=== PATIENT | female | born 1995 | race Caucasian/White ===

== ENCOUNTER 2023-11-11 11:43 | Emergency (ER) | payer MEDICAID ==
[~2023-11-11] VITALS: Ht 165.1 cm; Wt 118.2 kg
[2023-11-11 13:06] VITALS: BP 115/68; PULSE 74; RESP 16; TEMP 98; O2SAT 98
== END 2023-11-11 13:08 | disposition home or self-care (01) ==
LOC: ER 11:44
DX: S86.912A Strain of unspecified muscle(s) and tendon(s) at lower leg level, left leg, initial encounter (principal); Z88.5 Allergy status to narcotic agent; X58.XXXA Exposure to other specified factors, initial encounter; Y93.89 Activity, other specified; Y92.89 Other specified places as the place of occurrence of the external cause; Y99.8 Other external cause status
CPT/HCPCS: 93971; 99284

== ENCOUNTER 2023-12-29 15:19 | Emergency (ER) | payer MEDICAID ==
[~2023-12-29] VITALS: Ht 165.1 cm; Wt 94.8 kg
[2023-12-29] MEDS ORDERED: ibuprofen tablet 400 MG TABLET PO ONE (16:15)
[2023-12-29] MEDS: ibuprofen 200mg tablet PO ONE (16:29)
[2023-12-29 16:54] LABS: BASOPHILS % (AUTO) 0.3 % (0-1); EOSINOPHILS # (AUTO) 0.1 X10'3 (0-0.9); EOSINOPHILS % (AUTO) 0.9 % (0-6); HEMATOCRIT 41.7 % (35.0-45.0); LYMPHOCYTES # (AUTO) 0.7 X10'3 (1.1-4.8); LYMPHOCYTES % (AUTO) 8.7 % (21-51); MEAN CORPUSCULAR HEMOGLOBIN 31.5 PG (27.0-31.0); MEAN CORPUSCULAR HGB CONC 33.6 g/dL (33.0-36.5); MEAN CORPUSCULAR VOLUME 93.9 FL (78-98); MEAN PLATELET VOLUME 8.5 FL (7.4-10.4); MONOCYTES # (AUTO) 0.3 X10'3 (0-0.9); MONOCYTES % (AUTO) 3.3 % (2-12); NEUTROPHILS % (AUTO) 86.8 % (42-75); PLATELET COUNT 289 X10'3 (140-440); RED BLOOD COUNT 4.44 X10'6 (4.20-5.60); RED CELL DISTRIBUTION WIDTH 13.5 % (11.5-14.5)
[2023-12-29 16:57] LABS: BILIRUBIN,URINE NEGATIVE (Neg); CLARITY,URINE SLIGHTLY CLOUDY (Clear); GLUCOSE, URINE NEGATIVE (Neg); KETONES,URINE NEGATIVE (Neg); LEUKOCYTE ESTERASE ,URINE NEGATIVE (Neg); NITRITES, URINE NEGATIVE (Neg); OCCULT BLOOD,URINE NEGATIVE (Neg); PH,URINE 5.5 (4.8-8.0); PROTEIN,URINE NEGATIVE (Neg); UROBILINOGEN,URINE 0.2 E.U/dL (0.2-1.0)
[2023-12-29 17:06] LABS: COLOR,URINE DARK YELLOW (Yellow); UA COLLECTION TYPE CLN CATCH MIDSTREAM
[2023-12-29 17:07] LABS: BACTERIA,URINE FEW /HPF (Neg); CAL OXALATE CRYSTALS FEW /HPF (NEGATIVE); MUCUS STRANDS FEW /LPF (Neg); RBC,URINE 0-2 /HPF (0-2); RENAL CELLS, URINE FEW /HPF; SQUAMOUS EPITHELIAL CELL,UR MODERATE /LPF (FEW); TRANSITIONAL EPI CELLS,URINE FEW /HPF; WBC,URINE 0-4 /HPF (0-4)
[2023-12-29 17:08] LABS: ALANINE AMINOTRANSFERASE 18 U/L (12-78); ALBUMIN 3.6 G/DL (3.4-5.0); ALBUMIN/GLOBULIN RATIO 0.9 (1.1-1.5); ALKALINE PHOSPHATASE 74 IU/L (46-116); ANION GAP 9 (8-16); ASPARTATE AMINO TRANSFERASE 17 U/L (10-37); BILIRUBIN,TOTAL 0.5 MG/DL (0.1-1.0); BLOOD UREA NITROGEN 17 MG/DL (7-18); BUN/CREATININE RATIO 31.5 (10.0-20.0); CALCIUM 8.6 MG/DL (8.5-10.1); CHLORIDE 104 MMOL/L (99-107); CREATININE 0.54 MG/DL (0.40-0.90); GLUCOSE 78 MG/DL (70-104); POTASSIUM 4.1 MMOL/L (3.5-5.1); SODIUM 139 MMOL/L (135-145); TOTAL PROTEIN 7.6 G/DL (6.4-8.2); eCRCL 138 ML/MIN; eGFR > 90 ML/MIN
[2023-12-29 17:35] LABS: BETA HCG,QUANTITATIVE < 1.0 mIU/ml
[2023-12-29] MEDS: acetaminophen 325mg tablet PO ONE (17:48)
[2023-12-29] MEDS ORDERED: ONDA-245 PO (17:49)
[2023-12-29] MEDS: ketorolac trometh 15mg/ml vial 15 MG/ML ML IM ONE (17:52)
[2023-12-29] MEDS: ondansetron 4mg rapidly disintigrating tab PO ONE (17:53)
[2023-12-29 17:59] VITALS: BP 128/84; PULSE 79; RESP 15; TEMP 98.7; O2SAT 98
== END 2023-12-29 17:59 | disposition home or self-care (01) ==
LOC: ER 15:19
DX: B34.9 Viral infection, unspecified (principal); R11.2 Nausea with vomiting, unspecified; R19.7 Diarrhea, unspecified; Z88.8 Allergy status to other drugs, medicaments and biological substances; Z20.822 Contact with and (suspected) exposure to COVID-19; O02.81 Inappropriate change in quantitative human chorionic gonadotropin (hCG) in early pregnancy
CPT/HCPCS: 36415; 71045; 80053; 81001; 84702; 85025; 87811; 96372; 99284; J1885

== ENCOUNTER 2024-01-20 06:35 | Inpatient (IN) | payer MEDICAID ==
[2024-01-20] VITALS (17 sets, daily range): BP systolic 110–143; BP diastolic 58–84; PULSE 56–87; RESP 12–19; TEMP 97.4–98.3; O2SAT 91–100
[~2024-01-20] VITALS: Ht 165.1 cm; Wt 113.6 kg
[~2024-01-20 06:35] MED LIST: ONDA-245 PO
[2024-01-20 07:06] LABS: BASOPHILS % (AUTO) 0.3 % (0-1); EOSINOPHILS # (AUTO) 0.1 X10'3 (0-0.9); HEMATOCRIT 44.2 % (35.0-45.0); HEMOGLOBIN 14.4 g/dl (12.0-16.0); LYMPHOCYTES # (AUTO) 1.8 X10'3 (1.1-4.8); LYMPHOCYTES % (AUTO) 15.4 % (21-51); MEAN CORPUSCULAR HEMOGLOBIN 31.1 PG (27.0-31.0); MEAN CORPUSCULAR HGB CONC 32.6 g/dL (33.0-36.5); MEAN CORPUSCULAR VOLUME 95.4 FL (78-98); MEAN PLATELET VOLUME 9.1 FL (7.4-10.4); MONOCYTES # (AUTO) 0.7 X10'3 (0-0.9); MONOCYTES % (AUTO) 6.3 % (2-12); NEUTROPHILS # (AUTO) 9.1 X10'3 (1.8-7.7); PLATELET COUNT 262 X10'3 (140-440); RED BLOOD COUNT 4.64 X10'6 (4.20-5.60); RED CELL DISTRIBUTION WIDTH 12.9 % (11.5-14.5); WHITE BLOOD COUNT 11.7 X10'3 (4.5-11.0)
[2024-01-20 07:28] LABS: URINE HCG NEGATIVE (NEG)
[2024-01-20 07:33] LABS: BILIRUBIN,URINE NEGATIVE (Neg); CLARITY,URINE CLOUDY (Clear); COLOR,URINE YELLOW (Yellow); GLUCOSE, URINE NEGATIVE (Neg); KETONES,URINE NEGATIVE (Neg); LEUKOCYTE ESTERASE ,URINE NEGATIVE (Neg); NITRITES, URINE NEGATIVE (Neg); OCCULT BLOOD,URINE TRACE-INTACT (Neg); PH,URINE 6.5 (4.8-8.0); PROTEIN,URINE NEGATIVE (Neg); UROBILINOGEN,URINE 0.2 E.U/dL (0.2-1.0)
[2024-01-20] MEDS: ondansetron/PF 4mg/2ml inj IV ONE (07:36)
[2024-01-20] MEDS: morphine 2 MG/ML inj. syringe IV PRN ×2 (07:37→17:09)
[2024-01-20] MEDS: normal saline 1000ML IV soln IVB ONE (07:37)
[2024-01-20 07:46] LABS: UA COLLECTION TYPE CLN CATCH MIDSTREAM
[2024-01-20 07:49] LABS: BACTERIA,URINE 2+ /HPF (Neg); MUCUS STRANDS FEW /LPF (Neg); RBC,URINE 0-2 /HPF (0-2); SQUAMOUS EPITHELIAL CELL,UR MANY /LPF (FEW); WBC,URINE 0-4 /HPF (0-4)
[2024-01-20 09:06] LABS: ALANINE AMINOTRANSFERASE 13 U/L (12-78); ALBUMIN 3.3 G/DL (3.4-5.0); ALBUMIN/GLOBULIN RATIO 0.9 (1.1-1.5); ALKALINE PHOSPHATASE 60 IU/L (46-116); ANION GAP 7 (8-16); ASPARTATE AMINO TRANSFERASE 21 U/L (10-37); BILIRUBIN,TOTAL 0.4 MG/DL (0.1-1.0); BLOOD UREA NITROGEN 14 MG/DL (7-18); BUN/CREATININE RATIO 30.4 (10.0-20.0); CALCIUM 8.7 MG/DL (8.5-10.1); CHLORIDE 106 MMOL/L (99-107); CREATININE 0.46 MG/DL (0.40-0.90); GLUCOSE 81 MG/DL (70-104); LIPASE 44 U/L (16-77); POTASSIUM 3.6 MMOL/L (3.5-5.1); SODIUM 139 MMOL/L (135-145); TOTAL CARBON DIOXIDE 26.5 MMOL/L (24-32); TOTAL PROTEIN 6.8 G/DL (6.4-8.2); eCRCL 162 ML/MIN; eGFR > 90 ML/MIN
[2024-01-20] MEDS ORDERED: iohexol 300mg/ml 100ml inj. ONE (10:04)
[2024-01-20] MEDS ORDERED: magnesium sulf-water 4G/100mL 100 ML IV PRN (12:30)
[2024-01-20] MEDS ORDERED: acetaminophen 325mg tablet PO PRN (12:30)
[2024-01-20] MEDS ORDERED: potassium Cl 40MEQ/1/2NS 520ml 520 ML IV PRN (12:30)
[2024-01-20] MEDS ORDERED: potassium Cl 20 mEq SR tablet PO PRN (12:30)
[2024-01-20] MEDS ORDERED: magnesium Cl slow-release 64mg tablet PO PRN (12:30)
[2024-01-20] MEDS ORDERED: magnesium sulf-water 2g/50mL 50 ML IV PRN (12:30)
[2024-01-20] MEDS ORDERED: magnesium hydroxide 30ml (MOM) UD suspension PO PRN (12:30)
[2024-01-20 13:36] LABS: APTT 27 SECONDS (22-32); PROTHROMBIN TIME 10.9 SECONDS (9.0-12.0)
[2024-01-20] MEDS: BUPIVAcaine 2.5mg/ml inj 50ml vial (contains preservative) ONE (13:36)
[2024-01-20] MEDS ORDERED: meperidine/PF 25mg/ml syringe IV PRN ×2 (13:40)
[2024-01-20] MEDS ORDERED: labetalol 20mg/4ml (5mg/ml) syringe IV PRN (13:40)
[2024-01-20] MEDS ORDERED: morphine 4 MG/ML inj SYRINge IV PRN (13:40)
[2024-01-20] MEDS ORDERED: proCHLORperazine 10 MG/2 ml inj IV PRN (13:40)
[2024-01-20] MEDS ORDERED: hydrALAZINE 20mg/ml inj. IV PRN (13:40)
[2024-01-20] MEDS ORDERED: morphine 2 MG/ML inj. syringe IV PRN (13:40)
[2024-01-20] MEDS: ringers solution, lacted 1,000 ML IV SCH (13:40)
[2024-01-20] MEDS: famotidine 20mg tablet PO STA (13:52)
[2024-01-20] MEDS ORDERED: sevoflurane 250ml liquid IH ONE (13:56)
[2024-01-20] MEDS ORDERED: midazolam 1 mg/ML 2ml injection ONE (14:08)
[2024-01-20] MEDS ORDERED: fentaNYL /PF 50mcg/ml 5ml ampule ONE (14:18)
[2024-01-20] MEDS: BUPIVAcaine/PF 2.5 mg/ml (0.25%) 30ml vial SQ ONE (14:29)
[2024-01-20] MEDS ORDERED: ceFOXitin 1000 MG inj ONE ×2 (14:34→14:35)
[2024-01-20] MEDS ORDERED: LIDOcaine 2% (20mg/ml) 5ml vial ONE (14:34)
[2024-01-20] MEDS ORDERED: rocuronium 10mg/ml inj IV ONE (14:34)
[2024-01-20] MEDS ORDERED: propofol inj 20 ML IV ONE (14:35)
[2024-01-20] MEDS ORDERED: ondansetron/PF 4mg/2ml inj ONE (14:35)
[2024-01-20] MEDS ORDERED: dexamethasone sod phosphate 4mg/ml inj. ONE (14:35)
[2024-01-20] MEDS ORDERED: neostigmine methylsulfate 1 MG/ML 10ml vial ONE (15:08)
[2024-01-20] MEDS ORDERED: glycopyrrolate 0.2mg/ml inj ONE (15:08)
[2024-01-20] MEDS ORDERED: morphine 10mg/ml inj. ONE (15:18)
[2024-01-20] MEDS: ondansetron/PF 4mg/2ml inj IV PRN (15:50)
[2024-01-20] MEDS: acetaminophen 1,000mg/100ml IV 100 ML IV ONE (15:51)
[2024-01-20] MEDS: meperidine/PF 25mg/ml syringe IV PRN (15:51)
[2024-01-20] MEDS: normal saline 1000ml 1,000 ML IV SCH (16:33)
[2024-01-20] MEDS: docusate sod 100mg capsule PO SCH (19:40)
[2024-01-20] MEDS: mag hydrox/Alum hydrox/simeth 30ml oral suspension PO PRN (19:48)
[2024-01-20] MEDS: K and/or MAG REPLACEMENT MC SCH (20:00)
[2024-01-20] MEDS: HYDROmorphone inj. 0.5 MG/0.5 ML DISP.SYRIN IV PRN (22:19)
[2024-01-21] MEDS: ondansetron/PF 4mg/2ml inj IV PRN (00:59)
[2024-01-21 05:17] LABS: BASOPHILS % (AUTO) 0.2 % (0-1); EOSINOPHILS % (AUTO) 0.1 % (0-6); HEMATOCRIT 35.7 % (35.0-45.0); HEMOGLOBIN 11.9 g/dl (12.0-16.0); LYMPHOCYTES % (AUTO) 10.1 % (21-51); MEAN CORPUSCULAR HEMOGLOBIN 31.6 PG (27.0-31.0); MEAN CORPUSCULAR HGB CONC 33.3 g/dL (33.0-36.5); MEAN CORPUSCULAR VOLUME 94.8 FL (78-98); MEAN PLATELET VOLUME 9.7 FL (7.4-10.4); MONOCYTES # (AUTO) 0.6 X10'3 (0-0.9); MONOCYTES % (AUTO) 6.1 % (2-12); NEUTROPHILS # (AUTO) 8.3 X10'3 (1.8-7.7); NEUTROPHILS % (AUTO) 83.5 % (42-75); PLATELET COUNT 248 X10'3 (140-440); RED BLOOD COUNT 3.76 X10'6 (4.20-5.60)
[2024-01-21 05:28] LABS: ALANINE AMINOTRANSFERASE 17 U/L (12-78); ALBUMIN 3.2 G/DL (3.4-5.0); ALBUMIN/GLOBULIN RATIO 0.9 (1.1-1.5); ALKALINE PHOSPHATASE 60 IU/L (46-116); ANION GAP 8 (8-16); ASPARTATE AMINO TRANSFERASE 18 U/L (10-37); BILIRUBIN,TOTAL 0.6 MG/DL (0.1-1.0); BLOOD UREA NITROGEN 9 MG/DL (7-18); BUN/CREATININE RATIO 23.7 (10.0-20.0); CALCIUM 8.4 MG/DL (8.5-10.1); CHLORIDE 102 MMOL/L (99-107); CHOL/HDL RATIO 1.8 (0.00-4.99); CHOLESTEROL 136 MG/DL (0-200); CREATININE 0.38 MG/DL (0.40-0.90); GLUCOSE 89 MG/DL (70-104); HDL CHOLESTEROL 75 MG/DL (35-60); LDL CHOLESTEROL 52 MG/DL (50-100); MAGNESIUM 1.6 MG/DL (1.5-2.4); PHOSPHORUS 4.2 MG/DL (2.3-4.5); POTASSIUM 3.5 MMOL/L (3.5-5.1); SODIUM 137 MMOL/L (135-145); TOTAL CARBON DIOXIDE 26.8 MMOL/L (24-32); TOTAL PROTEIN 6.9 G/DL (6.4-8.2); TRIGLYCERIDES 88 MG/DL (20-135); eCRCL 197 ML/MIN; eGFR > 90 ML/MIN
[2024-01-21 06:00] VITALS: BP 103/60; PULSE 54; RESP 14; TEMP 98.6; O2SAT 95
[2024-01-21 08:30] VITALS: RESP 18; O2SAT 97
[2024-01-21 10:00] VITALS: BP 105/59; PULSE 61; RESP 14; TEMP 97.7; O2SAT 95
[2024-01-21] MEDS: piperacillin/tazo 3.375gm/50ml 50 ML IV SCH ×2 (10:50→19:14)
[2024-01-21] MEDS ORDERED: ondansetron/PF 4mg/2ml inj IV PRN (11:10)
[2024-01-21] MEDS: acetaminophen 325mg tablet PO PRN (14:37)
[2024-01-21 18:00] VITALS: BP 110/72; PULSE 72; RESP 16; TEMP 97.5; O2SAT 99
[2024-01-21] MEDS: HYDROcodone/acetaminophen 5mg/325mg tablet PO PRN (19:20)
[2024-01-21 20:00] VITALS: RESP 16; O2SAT 98
[2024-01-21 22:00] VITALS: BP 119/66; PULSE 74; RESP 16; TEMP 97.7; O2SAT 98
[2024-01-22 06:00] VITALS: BP 112/64; PULSE 68; RESP 16; TEMP 97.1; O2SAT 95
[2024-01-22 06:45] LABS: BASOPHILS % (AUTO) 0.6 % (0-1); EOSINOPHILS # (AUTO) 0.1 X10'3 (0-0.9); EOSINOPHILS % (AUTO) 0.9 % (0-6); HEMOGLOBIN 10.8 g/dl (12.0-16.0); LYMPHOCYTES # (AUTO) 1.5 X10'3 (1.1-4.8); LYMPHOCYTES % (AUTO) 23.1 % (21-51); MEAN CORPUSCULAR HEMOGLOBIN 31.1 PG (27.0-31.0); MEAN CORPUSCULAR HGB CONC 32.6 g/dL (33.0-36.5); MEAN CORPUSCULAR VOLUME 95.4 FL (78-98); MEAN PLATELET VOLUME 9.5 FL (7.4-10.4); MONOCYTES # (AUTO) 0.5 X10'3 (0-0.9); NEUTROPHILS # (AUTO) 4.4 X10'3 (1.8-7.7); NEUTROPHILS % (AUTO) 67.4 % (42-75); PLATELET COUNT 222 X10'3 (140-440); RED BLOOD COUNT 3.46 X10'6 (4.20-5.60); RED CELL DISTRIBUTION WIDTH 12.8 % (11.5-14.5); WHITE BLOOD COUNT 6.5 X10'3 (4.5-11.0)
[2024-01-22 07:06] LABS: ALANINE AMINOTRANSFERASE 14 U/L (12-78); ALBUMIN 2.8 G/DL (3.4-5.0); ALBUMIN/GLOBULIN RATIO 0.8 (1.1-1.5); ALKALINE PHOSPHATASE 56 IU/L (46-116); ANION GAP 4 (8-16); ASPARTATE AMINO TRANSFERASE 16 U/L (10-37); BILIRUBIN,TOTAL 0.6 MG/DL (0.1-1.0); BLOOD UREA NITROGEN 6 MG/DL (7-18); CALCIUM 8.1 MG/DL (8.5-10.1); CHLORIDE 104 MMOL/L (99-107); CREATININE 0.46 MG/DL (0.40-0.90); GLUCOSE 80 MG/DL (70-104); MAGNESIUM 1.9 MG/DL (1.5-2.4); PHOSPHORUS 2.6 MG/DL (2.3-4.5); POTASSIUM 3.4 MMOL/L (3.5-5.1); SODIUM 136 MMOL/L (135-145); TOTAL CARBON DIOXIDE 28.2 MMOL/L (24-32); TOTAL PROTEIN 6.4 G/DL (6.4-8.2); eCRCL 162 ML/MIN; eGFR > 90 ML/MIN
[2024-01-22 08:00] VITALS: RESP 16; O2SAT 95
[2024-01-22] MEDS: potassium Cl 20 mEq SR tablet PO PRN (09:24)
[2024-01-22] MEDS ORDERED: ACET-1008 PO (11:41)
[2024-01-22] MEDS ORDERED: ACET-3209 PO (11:43)
[2024-01-22 11:57] VITALS: RESP 18
== END 2024-01-22 13:11 | disposition home or self-care (01) | DRG 234 ==
LOC: ER 06:36 → ED HOLD 12:35 → ORTHO 4S 16:15 → SUR 3N 21:00
PROVIDERS: ADMIT Family Medicine; ATTEND Family Medicine
PROC: BW211ZZ Computerized Tomography (CT Scan) of Abdomen and Pelvis using Low Osmolar Contrast (ICD-10-PCS; 2024-01-20)
PROC: 0DTJ4ZZ Resection of Appendix, Percutaneous Endoscopic Approach (ICD-10-PCS; principal; 2024-01-20 13:56)
DX: K35.30 Acute appendicitis with localized peritonitis, without perforation or gangrene (principal); K76.0 Fatty (change of) liver, not elsewhere classified; E88.09 Other disorders of plasma-protein metabolism, not elsewhere classified; E66.01 Morbid (severe) obesity due to excess calories; J45.909 Unspecified asthma, uncomplicated; F17.210 Nicotine dependence, cigarettes, uncomplicated; I10 Essential (primary) hypertension; Z68.41 Body mass index [BMI] 40.0-44.9, adult; Z88.8 Allergy status to other drugs, medicaments and biological substances; Z98.51 Tubal ligation status
CPT/HCPCS: 36415; 74177; 80053; 80061; 81001; 81025; 83036; 83690; 83735; 84100; 84132; 85025; 85610; 85730; 87081; 96361; 96374; 99285; A4215; A4618; A7000; G0378; J0131; J0694; J1100; J1171; J2175; J2250; J2270; J2274; J2405; J2543; J2704; J2710; J3010; J3490; J7030; J7070; Q9967

== ENCOUNTER 2024-01-24 23:07 | Emergency (ER) | payer MEDICAID ==
[~2024-01-24] VITALS: Ht 165.1 cm; Wt 120.2 kg
[~2024-01-24 23:07] MED LIST changes: +ACET-3209 PO
[2024-01-24 23:42] LABS: BILIRUBIN,URINE NEGATIVE (Neg); CLARITY,URINE CLEAR (Clear); COLOR,URINE YELLOW (Yellow); GLUCOSE, URINE NEGATIVE (Neg); KETONES,URINE NEGATIVE (Neg); LEUKOCYTE ESTERASE ,URINE NEGATIVE (Neg); NITRITES, URINE NEGATIVE (Neg); OCCULT BLOOD,URINE NEGATIVE (Neg); PH,URINE 8.5 (4.8-8.0); PROTEIN,URINE NEGATIVE (Neg)
[2024-01-24 23:43] LABS: UA COLLECTION TYPE CLN CATCH MIDSTREAM
[2024-01-24 23:47] LABS: URINE HCG NEGATIVE (NEG)
[2024-01-25 00:15] LABS: BASOPHILS % (AUTO) 0.5 % (0-1); EOSINOPHILS # (AUTO) 0.1 X10'3 (0-0.9); HEMATOCRIT 34.9 % (35.0-45.0); HEMOGLOBIN 11.6 g/dl (12.0-16.0); LYMPHOCYTES # (AUTO) 1.7 X10'3 (1.1-4.8); LYMPHOCYTES % (AUTO) 17.6 % (21-51); MEAN CORPUSCULAR HEMOGLOBIN 31.4 PG (27.0-31.0); MEAN CORPUSCULAR HGB CONC 33.3 g/dL (33.0-36.5); MEAN CORPUSCULAR VOLUME 94.4 FL (78-98); MEAN PLATELET VOLUME 9.1 FL (7.4-10.4); MONOCYTES # (AUTO) 0.7 X10'3 (0-0.9); MONOCYTES % (AUTO) 7.5 % (2-12); NEUTROPHILS # (AUTO) 7.1 X10'3 (1.8-7.7); NEUTROPHILS % (AUTO) 73.4 % (42-75); PLATELET COUNT 292 X10'3 (140-440); RED CELL DISTRIBUTION WIDTH 13.1 % (11.5-14.5); WHITE BLOOD COUNT 9.7 X10'3 (4.5-11.0)
[2024-01-25 00:15] LABS: ALANINE AMINOTRANSFERASE 16 U/L (12-78); ALBUMIN 3.2 G/DL (3.4-5.0); ALBUMIN/GLOBULIN RATIO 0.8 (1.1-1.5); ALKALINE PHOSPHATASE 72 IU/L (46-116); ANION GAP 8 (8-16); ASPARTATE AMINO TRANSFERASE 15 U/L (10-37); BILIRUBIN,TOTAL 0.2 MG/DL (0.1-1.0); BLOOD UREA NITROGEN 13 MG/DL (7-18); BUN/CREATININE RATIO 21.7 (10.0-20.0); CALCIUM 9.1 MG/DL (8.5-10.1); CHLORIDE 102 MMOL/L (99-107); GLUCOSE 74 MG/DL (70-104); LIPASE 55 U/L (16-77); POTASSIUM 3.8 MMOL/L (3.5-5.1); SODIUM 139 MMOL/L (135-145); TOTAL PROTEIN 7.3 G/DL (6.4-8.2); eCRCL 124 ML/MIN; eGFR > 90 ML/MIN
[2024-01-25] MEDS ORDERED: iohexol 300mg/ml 100ml inj. ONE (00:25)
[2024-01-25] MEDS: normal saline 1000ml 1,000 ML IV ONE (00:26)
[2024-01-25] MEDS: morphine 4 MG/ML inj SYRINge IV ONE (00:46)
[2024-01-25] MEDS: ondansetron/PF 4mg/2ml inj IV ONE (00:46)
[2024-01-25 02:06] VITALS: BP 105/69; PULSE 77; RESP 14; TEMP 99; O2SAT 96
== END 2024-01-25 02:09 | disposition home or self-care (01) ==
LOC: ER 23:08
DX: R50.9 Fever, unspecified (principal); R10.84 Generalized abdominal pain; I10 Essential (primary) hypertension; J45.909 Unspecified asthma, uncomplicated; Z90.49 Acquired absence of other specified parts of digestive tract; Z98.51 Tubal ligation status; Z88.8 Allergy status to other drugs, medicaments and biological substances; Z79.1 Long term (current) use of non-steroidal anti-inflammatories (NSAID); Z79.899 Other long term (current) drug therapy; Z72.89 Other problems related to lifestyle; Z20.822 Contact with and (suspected) exposure to COVID-19
CPT/HCPCS: 36415; 74177; 80053; 81003; 81025; 83690; 84145; 85025; 87811; 96361; 96374; 96375; 99285; J2270; J2405; J7030; Q9967

== ENCOUNTER 2024-04-26 15:28 | Emergency (ER) | payer MEDICAID ==
[~2024-04-26] VITALS: Ht 165.1 cm; Wt 96.2 kg
[~2024-04-26 15:28] MED LIST changes: -ACET-3209 PO; +HYDR-3973 PO
[2024-04-26 15:52] VITALS: BP 137/96; PULSE 96; TEMP 97.2; O2SAT 98
[2024-04-26 17:47] VITALS: RESP 16
[2024-04-26] MEDS: ketorolac trometh 30MG/ML vial 30 MG/ML VIAL IM STA (17:47)
== END 2024-04-26 17:53 | disposition home or self-care (01) ==
LOC: ER 15:29
DX: M25.551 Pain in right hip (principal); J45.909 Unspecified asthma, uncomplicated; I10 Essential (primary) hypertension; Z88.6 Allergy status to analgesic agent; Z88.5 Allergy status to narcotic agent
CPT/HCPCS: 96372; 99283; J1885

== ENCOUNTER 2024-06-26 09:58 | Emergency (ER) | payer MEDICAID ==
[~2024-06-26] VITALS: Ht 165.1 cm; Wt 118.6 kg
[~2024-06-26 09:58] MED LIST changes: -HYDR-3973 PO
[2024-06-26 10:05] VITALS: BP 153/82; PULSE 76; RESP 18; TEMP 98.7; O2SAT 98
[2024-06-26] MEDS ORDERED: AZIT-164 PO (11:12)
[2024-06-26] MEDS: LIDOcaine 2% Viscous 15ml cup MM STA (11:23)
[2024-06-26] MEDS: acetaminophen 325mg tablet PO ONE (11:23)
== END 2024-06-26 11:27 | disposition home or self-care (01) ==
LOC: ER 09:58
DX: J02.9 Acute pharyngitis, unspecified (principal); I10 Essential (primary) hypertension; J45.909 Unspecified asthma, uncomplicated; F17.210 Nicotine dependence, cigarettes, uncomplicated; Z88.5 Allergy status to narcotic agent; Z88.6 Allergy status to analgesic agent
CPT/HCPCS: 99283

== ENCOUNTER 2024-07-21 17:03 | Emergency (ER) | payer MEDICAID ==
[~2024-07-21] VITALS: Ht 165.1 cm; Wt 122.1 kg
[2024-07-21] MEDS ORDERED: OFLO5DRO5 RIGHT EAR (17:20)
[2024-07-21 17:56] VITALS: BP 133/57; PULSE 60; RESP 16; TEMP 98.3; O2SAT 97
== END 2024-07-21 17:58 | disposition home or self-care (01) ==
LOC: ER 17:04
DX: H60.91 Unspecified otitis externa, right ear (principal); I10 Essential (primary) hypertension; J45.909 Unspecified asthma, uncomplicated; Z88.6 Allergy status to analgesic agent
CPT/HCPCS: 99283

== ENCOUNTER 2024-07-25 21:31 | Inpatient (IN) | payer MEDICAID ==
[~2024-07-25] VITALS: Ht 165.1 cm; Wt 121.9 kg
[~2024-07-25 21:31] MED LIST changes: +OFLO5DRO5 RIGHT EAR
[2024-07-26] MEDS: OLANZapine **IM** 10 mg inj. IM ONE (00:55)
[2024-07-26] MEDS ORDERED: magnesium sulf-water 4G/100mL 100 ML IV PRN (04:50)
[2024-07-26] MEDS ORDERED: potassium Cl 20 mEq SR tablet PO PRN ×2 (04:50)
[2024-07-26] MEDS ORDERED: magnesium hydroxide 30ml (MOM) UD suspension PO PRN (04:50)
[2024-07-26] MEDS ORDERED: potassium Cl 40MEQ/1/2NS 520ml 520 ML IV PRN (04:50)
[2024-07-26] MEDS ORDERED: acetaminophen 325mg tablet PO PRN (04:50)
[2024-07-26] MEDS ORDERED: magnesium sulf-water 2g/50mL 50 ML IV PRN (04:50)
[2024-07-26] MEDS ORDERED: mag hydrox/Alum hydrox/simeth 30ml oral suspension PO PRN (04:50)
[2024-07-26] MEDS ORDERED: magnesium Cl slow-release 64mg tablet PO PRN (04:50)
[2024-07-26] MEDS ORDERED: ondansetron/PF 4mg/2ml inj IV PRN (04:50)
[2024-07-26] MEDS ORDERED: morphine 2 MG/ML inj. syringe IV PRN (04:50)
[2024-07-26] MEDS: ringers solution, lacted 1,000 ML IV ONE (04:52)
[2024-07-26] MEDS: ketorolac trometh 15mg/ml vial 15 MG/ML ML IV ONE (04:53)
[2024-07-26 04:55] LABS: BASOPHILS # (AUTO) 0.1 X10'3 (0-0.2); BASOPHILS % (AUTO) 0.9 % (0-1); EOSINOPHILS # (AUTO) 0.1 X10'3 (0-0.9); EOSINOPHILS % (AUTO) 1.8 % (0-6); HEMATOCRIT 37.4 % (35.0-45.0); HEMOGLOBIN 12.6 g/dl (12.0-16.0); LYMPHOCYTES # (AUTO) 3.2 X10'3 (1.1-4.8); LYMPHOCYTES % (AUTO) 45.8 % (21-51); MEAN CORPUSCULAR HEMOGLOBIN 32.3 PG (27.0-31.0); MEAN CORPUSCULAR HGB CONC 33.6 g/dL (33.0-36.5); MEAN CORPUSCULAR VOLUME 96.1 FL (78-98); MEAN PLATELET VOLUME 8.8 FL (7.4-10.4); MONOCYTES # (AUTO) 0.5 X10'3 (0-0.9); MONOCYTES % (AUTO) 6.9 % (2-12); NEUTROPHILS # (AUTO) 3.1 X10'3 (1.8-7.7); NEUTROPHILS % (AUTO) 44.6 % (42-75); PLATELET COUNT 272 X10'3 (140-440); RED BLOOD COUNT 3.89 X10'6 (4.20-5.60); RED CELL DISTRIBUTION WIDTH 13.4 % (11.5-14.5)
[2024-07-26] MEDS: proCHLORperazine 10 MG/2 ml inj IV ONE (04:56)
[2024-07-26] MEDS: diphenhydrAMINE 50 mg/ml inj IV ONE (05:00)
[2024-07-26 05:17] LABS: ALBUMIN 3.5 G/DL (3.4-5.0); ANION GAP 6 (8-16); BLOOD UREA NITROGEN 15 MG/DL (7-18); BUN/CREATININE RATIO 31.9 (10.0-20.0); C-REACTIVE PROTEIN 0.06 MG/DL (0.0-0.5); CALCIUM 8.6 MG/DL (8.5-10.1); CHLORIDE 107 MMOL/L (99-107); CREATININE 0.47 MG/DL (0.40-0.90); GLUCOSE 78 MG/DL (70-104); POTASSIUM 3.7 MMOL/L (3.5-5.1); SODIUM 141 MMOL/L (135-145); eCRCL 157 ML/MIN; eGFR > 90 ML/MIN
[2024-07-26] MEDS: magnesium sulf-water 2g/50mL 50 ML IV ONE (05:29)
[2024-07-26] MEDS ORDERED: OMEP20CA16 PO (05:48)
[2024-07-26] MEDS ORDERED: TIRZ2.5P3 (05:55)
[2024-07-26 07:29] VITALS: BP 105/47; PULSE 52; RESP 17; TEMP 97.5; O2SAT 100
[2024-07-26] MEDS: K and/or MAG REPLACEMENT MC SCH (07:53)
[2024-07-26] MEDS: docusate sod 100mg capsule PO SCH (08:05)
[2024-07-26 10:00] VITALS: BP 108/59; PULSE 58; RESP 20; TEMP 97.9; O2SAT 98
[2024-07-26 13:32] VITALS: RESP 18; O2SAT 98
[2024-07-26 18:00] VITALS: BP 103/63; PULSE 55; RESP 16; TEMP 98; O2SAT 98
[2024-07-26 18:08] VITALS: RESP 18
[2024-07-26] MEDS: morphine 2 MG/ML inj. syringe IV PRN (18:08)
[2024-07-26] MEDS ORDERED: GADOTERATE MEGLUMINE 7.5 MMOL/15 ML VIAL IV ONE (18:15)
[2024-07-26] MEDS ORDERED: AMOX-580 PO (19:09)
== END 2024-07-26 19:34 | disposition home or self-care (01) | DRG 54 ==
LOC: ER 21:31 → ED HOLD 07-26 04:52 → SUR 3N 07-26 06:40
PROVIDERS: ADMIT Internal Medicine; ATTEND Family Medicine
DX: G43.919 Migraine, unspecified, intractable, without status migrainosus (principal); E66.01 Morbid (severe) obesity due to excess calories; I10 Essential (primary) hypertension; J01.90 Acute sinusitis, unspecified; R73.03 Prediabetes; J45.909 Unspecified asthma, uncomplicated; Z68.41 Body mass index [BMI] 40.0-44.9, adult
CPT/HCPCS: 36415; 70450; 70553; 80048; 83735; 85025; 85651; 86140; 87081; 96372; 99285; G0378; J0780; J1200; J1885; J2270; J3490; J7120

== ENCOUNTER 2024-09-16 20:38 | Emergency (ER) | payer MEDICAID, SELFPAY ==
[~2024-09-16] VITALS: Ht 165.1 cm; Wt 121.9 kg
[~2024-09-16 20:38] MED LIST changes: +AMOX-580 PO; -OFLO5DRO5 RIGHT EAR; +OMEP20CA16 PO; -ONDA-245 PO; +TIRZ2.5P3
[2024-09-16 20:47] VITALS: BP 117/81; PULSE 65; RESP 16; TEMP 98.1; O2SAT 97
--- NOTE | 2024-09-16 21:24 | Physician Documentation ---
History of Present Illness ~ Chief Complaint: Headache Stated Complaint: HEADACHE Time Seen by MD: 22:44 OK to notify your PCP?: Yes Primary Medical Doctor: kim ann Source: patient Mode of Arrival: POV Exam Limitations: no limitations HPI 29-year-old female presents with neck pain and posterior scalp pain after falling in the bathtub 4 days ago. She states she has a history of migraines and this feels different than her normal migraine. She reports having a migraine for 1 week which started a couple of days prior to her fall. She is having some nausea but denies photophobia or sensitivity to sound. Additional note by Rickey Bean, DO: I took over the care of this patient from previous physician. I reviewed any previous notes available, obtain my own history, review of systems and physical examination was performed by myself. This is a 29-year-old female who confirms the story above. She states that she is experiencing occipital pain radiating to her neck. It is different from her migraine. No particular palliating factors, aggravated by range of motion of the neck. She treated it with a both Excedrin and ibuprofen with good improvement. However she has never had a headache this bad. No vision or hearing changes. No focal deficits. No photophobia or phonophobia. Denies any other symptoms such as chest pain, difficulty breathing, nausea, vomiting, diarrhea, abdominal pain. Medication Reconciliation Allergies: Coded Allergies: NSAIDS (Non-Steroidal Anti-Inflamma (Verified Allergy, Unknown, 07/21/24) HAS TOLERATED TORADOL IN 12/2023 tramadol (Verified Allergy, Unknown, 07/21/24) Scheduled Amox Tr/Potassium Clavulanate 875/125 MG (Augmentin 875/125 MG), 1 TAB PO BID Omeprazole (Omeprazole), 1 CAP PO DAILY, (Reported) Miscellaneous Medications Tirzepatide (Zepbound), (Reported) Past Medical History Past Medical History: Hypertension, Asthma Patient History: FH: CHF (congestive heart failure) MOTHER FH: COPD (chronic obstructive pulmonary disease) MOTHER FH: heart disease MOTHER FH: kidney failure MOTHER Liver failure MOTHER Alcohol Use: Occasionally Drug Use: none Lives with: Family Lives In: Home Occupation: employed Review of Systems All Other Systems at this time: Reviewed and Negative ROS 10 point review of systems was performed and unless noted above in HPI is negative for acute process/complaint. Physical Exam Vital Signs: RN Vital Signs have been reviewed: Yes, Temperature: 98.1, Heart Rate: 65, Respiratory Rate: 16, BP: 117/81, Pulse Oximetry: 97, Weight: 121.900 Oxygen Flow Rate: 0 Pulse Oximetry Reflects: adequate oxygenation Physical Exam General: Alert, no distress. HEENT: No injection, moist mucous membranes. Neck: Full range of motion. Tenderness to palpation of C-spine as well. Respiratory: No respiratory distress, equal chest rise and fall. Chest: No accessory muscle use. Cardiovascular: Regular rate and rhythm. Gastrointestinal: Nondistended. Extremities: Normal range of motion, no deformity. Neurologic: Oriented x4. Psychiatric: Normal mood and affect. Skin: Normal color, warm and dry. Posterior scalp tender to palpation. Progress Results/Orders Results/Orders Orders - RICKEY BEAN DO Ct Head (09/16/24 21:00) Ct Cervical Spine (09/16/24 21:00) Completed Orders - RICKEY BEAN DO Ct Head (09/16/24 21:00) Ct Cervical Spine (09/16/24 21:00) Normal Saline 1000ml (Sodium Chloride 10 (09/16/24 21:30) Prochlorperazine Inj (Compazine Inj) (09/16/24 21:30) Diphenhydramine Inj (Benadryl Inj.) (09/16/24 21:30) Ondansetron Inj. (Zofran 4mg/2ml Vial) (09/16/24 21:30) Medications Received in ER Medications (Trade) Dose Ordered Sig/Tariq Route PRN Reason Start Time Stop Time Status Last Admin Dose Admin Sodium Chloride 1,000 ml @ 1,000 mls/hr ONCE ONCE IV 09/16/24 21:30 09/16/24 22:29 DC 09/16/24 23:01 1,000 MLS/HR (Compazine inj) 10 mg ONCE ONCE IV 09/16/24 21:30 09/16/24 21:32 DC 09/16/24 22:58 10 MG (Benadryl inj.) 25 mg ONCE ONCE IV 09/16/24 21:30 09/16/24 21:32 DC 09/16/24 22:59 25 MG (Zofran 4mg/2ml vial) 4 mg ONCE ONCE IV 09/16/24 21:30 09/16/24 21:32 DC 09/16/24 22:59 4 MG Vital Signs 09/16/24 20:47 Temp 98.1 Pulse 65 Resp 16 B/P (MAP) 117/81 Pulse Ox 97 O2 Flow Rate 0 EKG/XRAY/CT/US/VASC/MRI CT : Impression [address] [address] CAT SCAN Patient: LIZ ADAIR Medical Record: [id number] ELIZABETH FLORENCE : 1995, Age: 29 Sex: Female Location: ER Patient Status: [facility] ER Service Date/Time: 09/16/242099 Ordering Physician: RICKEY BEAN DO Exam: CT CERVICAL SPINE CT BRAIN WITHOUT CONTRAST HISTORY: BARAJAS, FALL W/ HEADSTRIKE TECHNIQUE: Axial scans were obtained from the skull base through the vertex without contrast. Sagittal and coronal reformats were generated. One or more of the following radiation dose reduction techniques were used for this examination: automated exposure control, adjustment of the mA and/or kV according to patient size, use of iterative reconstruction technique. COMPARISON: MR MRI HEAD on DOS: 07/26/24, CT CT HEAD on DOS: 07/26/24 FINDINGS: Mild bilateral frontal lobe atrophy is again noted. As before, this is greater than expected for the patient's age. Otherwise no acute intracranial hemorrhage or evidence of large vessel territorial infarction identified at this time. No midline shift. The basilar cisterns are patent. Glover-white differentiation appears relatively preserved. Opacification of the imaged right maxillary sinus. The other visualized paranasal sinuses and mastoid air cells are clear. No grossly displaced calvarial fracture is identified. IMPRESSION: No acute intracranial findings. CT OF THE CERVICAL SPINE WITHOUT CONTRAST HISTORY: BARAJAS, FALL W/ HEADSTRIKE COMPARISON: None TECHNIQUE: Thin section helical axial scans were obtained from the skull base to the upper thoracic spine. Sagittal and coronal reformatted images were obtained. One or more of the following radiation dose reduction techniques were used for this examination: automated exposure control, adjustment of the mA and/or kV according to patient size, use of iterative reconstruction technique. FINDINGS: Straightening and mild reversal of the cervical curvature. No grossly displaced fractures or subluxations identified. Vertebral body heights appear maintained. The bony spinal canal is patent. Prevertebral soft tissues appear within normal limits. IMPRESSION: No displaced fractures or subluxations identified. Straightening and mild reversal of the cervical curvature may be in part related to patient positioning and/or muscular spasm. Electronically Signed by:WALLACE VEGA MD Date & Time: 09/16/242243 Dictated by: WALLACE VEGA MD Dictation date and time: 09/16/242243 Primary Care Provider: NO PRIMARY CARE PROVIDER cc: RICKEY BEAN DO ~ Medical Decision Making Findings Facility Status: ED Holds, [facility] process The plan was discussed with the patient, who demonstrates clear understanding of the plan and is in agreement with the plan unless otherwise noted in the chart. All questions have been answered, all concerns were addressed unless otherwise documented. I was available throughout their ED stay for frequent reassessment and q uestions. Differential Diagnoses (considered and possible or likely): [Fall in bathtub, acute traumatic pain, concussion, subdural, subarachnoid, closed head injury, cervical spine fracture subluxation, less likely migraine, less likely trigeminal neuralgia or cluster headache] ??Differential Diagnoses (considered and unlikely, not requiring evaluation currently): [No evidence of lateralizing signs to suspect a stroke] MDM Data Please see HPI for the following: Independent Historians and external Records Review. Historian: [Patient] Independent Historians: ?[None] Medication Management: [Reviewed medication list] Social History and determinants: [Reviewed] Please see the body of the note for the following: Any independent interpretations of ECG, imaging studies. All vitals signs/haemodynamics, ordered tests were independently reviewed and interpreted by myself. Nursing triage complaint and vitals reviewed, additional nursing notes were reviewed as available and I agree unless otherwise noted or documented in contradiction in the chart Vital Signs: Independently reviewed Labs: Independently interpreted Imaging: Independently interpreted Old Medical Records: Independently reviewed, see HPI for relevant summary and information Additionally notably showing: [Hemodynamically stable. Imaging is unremarkable.] Tests considered but not ordered include: [Hematologic workup has been considered but does not appear to be necessary given mechanical nature of the injury.] Social Determinants of Health Impact: Patient was evaluated in [facility], [facility] [place] to healthcare due to below par ratio of patient to medical providers. [] Comorbid Conditions Impacting Present Evaluation and Care/Treatment: [History of migraines] Management Discussions with other Healthcare Providers: [None] Treatment and Disposition Medication Management (Given or considered): [Pain management]. See EMR for details Consideration for Hospitalization/Escalation/Deescalation of Care: Admission for observation has been considered, [however the patient is able to tolerate p.o., their symptoms are controlled, they are able to rely on oral medications, and their chief complaint/diagnosis can be managed on outpatient basis.] ?ED Course:?[No clinical deterioration.] ?Shared decision making:?[Patient is hemodynamically stable for discharge home with follow with their primary care provider. [ ] Specific and cautious return precautions provided and discussed with full understanding. Any incidental findings were also discussed and follow up recommendations given. [] All questions answered. Patient/family were able to verbalize back return precautions. Patient/family agree to plan. Copies of imaging and laboratory studies were provided.] Code status:?FULL Please see the full Electronic Medical Record for full details of nursing documentation, medications list, other records of complete past medical history and conditions, vital signs, laboratory studies, and any radiologic study interpretations by radiologists. Portions of this note were completed using Code[employer] dictation software and as a result there may exist minor errors in spelling. I have reviewed elements of past family and social history and agree as included in note. Departure Disposition: 01 HOME / SELF CARE / HOMELESS Impression: Primary Impression: Fall in bathtub Additional Impressions: Acute traumatic pain Closed head injury Neck pain Condition: Improved Discharge Instructions: Concussion, Adult Referrals: NO PRIMARY CARE PROVIDER (PCP) Additional Comment Medical Screen Exam This patient recieved a medical screening examination. After reviewing the individual's medical complaints with presenting symptoms and performing an appropriate physical examination, it was determined that no immediate life-threatening emergency medical condition is present. This individual is also not a women having contractions. Signature Scribe Signature: No scribe Attestation: This note accurately reflects clinical decisions, work performed by myself, DO BIJU Perkins [facility] Sep 16, 2024 21:24 RICKEY BEAN DO Sep 16, 2024 23:36
--- NOTE | 2024-09-16 22:46 | RADIOLOGY REPORT ---
CT BRAIN WITHOUT CONTRAST HISTORY: BARAJAS, FALL W/ HEADSTRIKE TECHNIQUE: Axial scans were obtained from the skull base through the vertex without contrast. Sagitta l and coronal reformats were generated. One or more of the following radiation dose reduction techniq ues were used for this examination: automated exposure control, adjustment of the mA and/or kV accord ing to patient size, use of iterative reconstruction technique. COMPARISON: MR MRI HEAD on DOS: 07/26/24, CT CT HEAD on DOS: 07/26/24 FINDINGS: Mild bilateral frontal lobe atrophy is again noted. As before, this is greater than expected for the patient's age. Otherwise no acute intracranial hemorrhage or evidence of large vessel territorial inf arction identified at this time. No midline shift. The basilar cisterns are patent. Glover-white diffe rentiation appears relatively preserved. Opacification of the imaged right maxillary sinus. The other visualized paranasal sinuses and mastoi d air cells are clear. No grossly displaced calvarial fracture is identified. IMPRESSION: No acute intracranial findings. CT OF THE CERVICAL SPINE WITHOUT CONTRAST HISTORY: BARAJAS, FALL W/ HEADSTRIKE COMPARISON: None TECHNIQUE: Thin section helical axial scans were obtained from the skull base to the upper thoracic s pine. Sagittal and coronal reformatted images were obtained. One or more of the following radiation d ose reduction techniques were used for this examination: automated exposure control, adjustment of th e mA and/or kV according to patient size, use of iterative reconstruction technique. FINDINGS: Straightening and mild reversal of the cervical curvature. No grossly displaced fractures or subluxat ions identified. Vertebral body heights appear maintained. The bony spinal canal is patent. Prevert ebral soft tissues appear within normal limits. IMPRESSION: No displaced fractures or subluxations identified. Straightening and mild reversal of the cervical curvature may be in part related to patient positioni ng and/or muscular spasm.
[2024-09-16] MEDS: proCHLORperazine 10 MG/2 ml inj IV ONE (22:58)
[2024-09-16] MEDS: ondansetron/PF 4mg/2ml inj IV ONE (22:59)
[2024-09-16] MEDS: diphenhydrAMINE 50 mg/ml inj IV ONE (22:59)
[2024-09-16] MEDS: normal saline 1000ml 1,000 ML IV ONE (23:01)
== END 2024-09-16 23:51 | disposition home or self-care (01) ==
LOC: ER 20:38
DX: S09.90XA Unspecified injury of head, initial encounter (principal); G89.11 Acute pain due to trauma; M54.2 Cervicalgia; I10 Essential (primary) hypertension; J45.909 Unspecified asthma, uncomplicated; Z88.6 Allergy status to analgesic agent; W18.2XXA Fall in (into) shower or empty bathtub, initial encounter; Y93.E1 Activity, personal bathing and showering; Y92.89 Other specified places as the place of occurrence of the external cause; Y99.8 Other external cause status
CPT/HCPCS: 70450; 72125; 96361; 96374; 96375; 99285; J0780; J1200; J2405; J7030

== ENCOUNTER 2024-09-22 17:32 | Emergency (ER) | payer MEDICAID ==
[~2024-09-22] VITALS: Ht 165.1 cm; Wt 121.3 kg
[2024-09-22] MEDS: dexamethasone sod phosphate 10mg/ml inj IV STA (19:41)
[2024-09-22] MEDS: metoclopramide 5 mg/ml inj IV ONE (19:41)
[2024-09-22] MEDS: diphenhydrAMINE 50 mg/ml inj IV ONE (19:42)
[2024-09-22] MEDS: normal saline 1000ML IV soln IVB ONE (19:42)
[2024-09-22] MEDS: ketorolac trometh 30MG/ML vial 30 MG/ML VIAL IV ONE (20:05)
--- NOTE | 2024-09-22 20:11 | Physician Documentation ---
History of Present Illness ~ Chief Complaint: Head Pain Stated Complaint: HEAD PAIN Time Seen by MD: 18:11 OK to notify your PCP?: Yes Primary Medical Doctor: kim ann Source: patient Mode of Arrival: POV Exam Limitations: no limitations HPI 29-year-old female presents with continuing right posterior head pain after hitting her head on a shampoo dispenser 2 weeks ago. She was diagnosed with a concussion and had a normal head CT done at that time. She did not lose any consciousness. She does not have any history of migraines. She has been having a severe headache which wraps around into her right jaw with nausea photophobia. She has been taking Excedrin and ibuprofen at home which was helping but no longer is. Medication Reconciliation Allergies: Coded Allergies: NSAIDS (Non-Steroidal Anti-Inflamma (Verified Allergy, Unknown, 07/21/24) HAS TOLERATED TORADOL IN 12/2023 tramadol (Verified Allergy, Unknown, 07/21/24) Scheduled Amox Tr/Potassium Clavulanate 875/125 MG (Augmentin 875/125 MG), 1 TAB PO BID Omeprazole (Omeprazole), 1 CAP PO DAILY, (Reported) Miscellaneous Medications Tirzepatide (Zepbound), (Reported) Past Medical History Past Medical History: Hypertension, Asthma Patient History: FH: CHF (congestive heart failure) MOTHER FH: COPD (chronic obstructive pulmonary disease) MOTHER FH: heart disease MOTHER FH: kidney failure MOTHER Liver failure MOTHER Alcohol Use: Occasionally Drug Use: none Lives with: Family Lives In: Home Occupation: employed Review of Systems All Other Systems at this time: Reviewed and Negative Physical Exam Vital Signs: RN Vital Signs have been reviewed: Yes, Temperature: 98.3, Source: Oral, Heart Rate: 74, Respiratory Rate: 16, BP: 153/78, Pulse Oximetry: 97, Weight: 121.300 Oxygen Flow Rate: 0 Pulse Oximetry Reflects: adequate oxygenation Physical Exam General: Alert, no distress. HEENT: No injection, moist mucous membranes. Neck: Full range of motion. Respiratory: No respiratory distress, equal chest rise and fall. Chest: No accessory muscle use. Cardiovascular: Regular rate and rhythm. Gastrointestinal: Nondistended. Extremities: Normal range of motion, no deformity. Neurologic: Oriented x4. Psychiatric: Normal mood and affect. Skin: Normal color, warm and dry. Progress Results/Orders Reviewed/noted all lab results: Yes Results/Orders Completed Orders - NATALIA JACOB [employer] REPAIRER Normal Saline 1000ml (Sodium Chloride 10 (09/22/24 19:30) Dexamethasone Inj (Decadron 10mg/Ml Inj) (09/22/24 19:29) Diphenhydramine Inj (Benadryl Inj.) (09/22/24 19:30) Metoclopramide Inj (Reglan Inj) (09/22/24 19:30) Ketorolac Trometh 30mg/Ml Vial (Toradol (09/22/24 20:00) Medications Received in ER Medications (Trade) Dose Ordered Sig/Tariq Route PRN Reason Start Time Stop Time Status Last Admin Dose Admin (sodium chloride 1000ml IV soln) 1,000 ml ONCE ONCE IVB 09/22/24 19:30 09/22/24 19:33 DC 09/22/24 19:42 1,000 ML (Decadron 10mg/ ml inj) 10 mg ONCE STAT IV 09/22/24 19:29 09/22/24 19:33 DC 09/22/24 19:41 10 MG (Benadryl inj.) 50 mg ONCE ONCE IV 09/22/24 19:30 09/22/24 19:33 DC 09/22/24 19:42 50 MG (Reglan inj) 10 mg ONCE ONCE IV 09/22/24 19:30 09/22/24 19:33 DC 09/22/24 19:41 10 MG Vital Signs 09/22/24 17:39 Temp 98.3 Pulse 74 Resp 16 B/P (MAP) 153/78 Pulse Ox 97 O2 Flow Rate 0 Medical Decision Making Additional info obtained from: old records, family Findings 29-year-old female presents with right posterior headache which wraps around her head and radiated to her right jaw. She has an unremarkable physical exam. She has been having nausea and photophobia and sensitivity to sound. She has not have a history of migraines this is a new thing since 2 weeks ago she hit her head on a shampoo dispenser. She had prior negative CT scan here. Using shared decision-making with the patient, she opted not to do a repeat CT scan this has been 2 weeks and it is unlikely to show any change. We have given a migraine cocktail consisting of Reglan, dexamethasone, 1 L normal saline, Benadryl which provided much relief. She is still having a very mild headache so we gave IV Toradol. She has been educated on concussion precautions and should follow up with her primary care provider in the next 3 days. She should return back here for any new or worsening symptoms. Differential Dx:Considerations: Include: Close head injuyr, CVA, Hemorrhage- Epidural, Hemorrhage-Intracerebral, Hemorrhage-Subarachnoid, Hemorrhage- Subdural, Meningitis, Temporal arteritis, Trigeminal neuralgia Departure Disposition: HOME / SELF CARE / HOMELESS Impression: Primary Impression: Headache Condition: Stable Discharge Instructions: Headache Additional Instructions: She has been educated on concussion precautions and should follow up with her primary care provider in the next 3 days. She should return back here for any new or worsening symptoms. Referrals: NO PRIMARY CARE PROVIDER (PCP) Education Educated: Patient, Family Educated regarding: diagnosis, treatment, prognosis, need for follow up Additional Comment Medical Screen Exam This patient recieved a medical screening examination. After reviewing the individual's medical complaints with presenting symptoms and performing an appropriate physical examination, it was determined that no immediate life- threatening emergency medical condition is present. This individual is also not a women having contractions. Signature Scribe Signature: . Attestation: Scribed for Natalia Jacob by Natalia Saldana NP . 09/22/24 20:12 NATALIA JACOB Sep 22, 2024 20:11
[2024-09-22 20:26] VITALS: BP 132/80; PULSE 80; RESP 16; TEMP 97.8; O2SAT 99
== END 2024-09-22 20:28 | disposition home or self-care (01) ==
LOC: ER 17:33
DX: R51.9 Headache, unspecified (principal); I10 Essential (primary) hypertension; J45.909 Unspecified asthma, uncomplicated; Z88.5 Allergy status to narcotic agent; Z88.6 Allergy status to analgesic agent; Z79.899 Other long term (current) drug therapy; Z72.89 Other problems related to lifestyle
CPT/HCPCS: 96361; 96374; 96375; 99284; J1100; J1200; J1885; J2765; J7030

== ENCOUNTER 2024-11-08 11:21 | Emergency (ER) | payer MEDICAID ==
[~2024-11-08] VITALS: Ht 165.1 cm; Wt 120.7 kg
[2024-11-08 11:47] LABS: STREP A SCREEN POSITIVE (Neg)
[2024-11-08] MEDS ORDERED: AMOX-101 PO (12:18)
--- NOTE | 2024-11-08 12:20 | Physician Documentation ---
History of Present Illness ~ Chief Complaint: Sore Throat Stated Complaint: FLU SYMPTOMS Time Seen by MD: 12:06 Primary Medical Doctor: kim ann Source: patient Mode of Arrival: POV HPI Patient in with sore throat and body aches over the last couple of days. History of strep throat. Medication Reconciliation Allergies: Coded Allergies: NSAIDS (Non-Steroidal Anti-Inflamma (Verified Allergy, Unknown, 07/21/24) HAS TOLERATED TORADOL IN 12/2023 tramadol (Verified Allergy, Unknown, 07/21/24) Scheduled Amox Tr/Potassium Clavulanate 875/125 MG (Augmentin 875/125 MG), 1 TAB PO BID Omeprazole (Omeprazole), 1 CAP PO DAILY, (Reported) Miscellaneous Medications Tirzepatide (Zepbound), (Reported) Past Medical History Past Medical History: Hypertension, Asthma Patient History: FH: CHF (congestive heart failure) MOTHER FH: COPD (chronic obstructive pulmonary disease) MOTHER FH: heart disease MOTHER FH: kidney failure MOTHER Liver failure MOTHER Alcohol Use: Occasionally Drug Use: none Lives with: Family Lives In: Home Occupation: employed Review of Systems All Other Systems at this time: Reviewed and Negative Physical Exam Vital Signs: Temperature: 98.0, Source: Oral, Heart Rate: 76, Respiratory Rate: 16, BP: 139/83, Pulse Oximetry: 98, Weight: 120.700 Oxygen Flow Rate: 0 General Appearance: alert, WD/WN Mouth/Throat Posterior oropharynx with mild to moderate erythema, no exudates Neck: non-tender, full range of motion Respiratory: lungs clear, normal breath sounds Chest: no accessory muscle use Cardiovascular: regular rate, rhythm Skin: normal color, warm/dry Lymphatic: no adenopathy Neurologic: oriented x4, memory intact Psychiatric: normal mood/affect Progress Progress Note Patient tested positive for strep. Placing her on amoxicillin. Discharged home in good condition. Follow up if not improving or return if new or worsening sym ptoms. Results/Orders Results/Orders Completed Orders - ZACARIAS GARNICA MD Strep A Rapid (11/08/24 11:26) Vital Signs 11/08/24 11:22 Temp 98.0 Pulse 76 Resp 16 B/P (MAP) 139/83 Pulse Ox 98 O2 Flow Rate 0 Laboratory Tests Test 11/08/24 11:27 Group A Streptococcus Rapid Positive H Departure Impression: Primary Impression: Strep throat Condition: Stable Discharge Instructions: Strep Throat, Adult Additional Instructions: Follow up with your doctor if not improving over the next week or return here if new or worsening symptoms. Referrals: NO PRIMARY CARE PROVIDER (PCP) Prescriptions Amoxicillin Trihydrate (Amoxicillin) 500 Mg Capsule 1 CAP PO BID for 10 Days, #20 CAP Prov: ZACARIAS GARNICA MD 11/08/24 Education Educated: Patient Educated regarding: diagnosis, treatment, prognosis, need for follow up Signature Scribe Signature: No scribe used Attestation: no Scribe used ZACARIAS GARNICA MD Nov 08, 2024 12:20
[2024-11-08 12:23] VITALS: BP 139/80; PULSE 75; RESP 17; TEMP 98; O2SAT 99
== END 2024-11-08 12:24 | disposition home or self-care (01) ==
LOC: ER 11:22
DX: J02.0 Streptococcal pharyngitis (principal); I10 Essential (primary) hypertension; J45.909 Unspecified asthma, uncomplicated; Z88.5 Allergy status to narcotic agent; Z88.6 Allergy status to analgesic agent; Z79.899 Other long term (current) drug therapy; Z72.89 Other problems related to lifestyle
CPT/HCPCS: 87880; 99283

== ENCOUNTER 2024-12-11 16:10 | Emergency (ER) | payer MEDICAID ==
[~2024-12-11] VITALS: Ht 165.1 cm; Wt 120.0 kg
[2024-12-11 16:32] VITALS: BP 146/91; O2SAT 99
--- NOTE | 2024-12-11 16:59 | Physician Documentation ---
History of Present Illness ~ Chief Complaint: Flu Symptoms Stated Complaint: FLU SYMPTOMS Time Seen by MD: 19:51 Primary Medical Doctor: fallentimber seth [facility] This is a 29-year-old female who presents with two days of body aches, fever, cough and sore throat, patient reports negative COVID test at home, patient reports partner has similar symptoms. Medication Reconciliation Allergies: Coded Allergies: NSAIDS (Non-Steroidal Anti-Inflamma (Verified Allergy, Unknown, 07/21/24) HAS TOLERATED TORADOL IN 12/2023 tramadol (Verified Allergy, Unknown, 07/21/24) Scheduled Amox Tr/Potassium Clavulanate 875/125 MG (Augmentin 875/125 MG), 1 TAB PO BID Omeprazole (Omeprazole), 1 CAP PO DAILY, (Reported) Miscellaneous Medications Tirzepatide (Zepbound), (Reported) Past Medical History Past Medical History: Hypertension, Asthma Patient History: FH: CHF (congestive heart failure) MOTHER FH: COPD (chronic obstructive pulmonary disease) MOTHER FH: heart disease MOTHER FH: kidney failure MOTHER Liver failure MOTHER Alcohol Use: Occasionally Drug Use: none Lives with: Family Lives In: Home Occupation: employed Review of Systems ROS As stated above in the HPI, otherwise all systems are reviewed and negative. Physical Exam Vital Signs: Temperature: 101.0, Source: Oral, Heart Rate: 87, Respiratory Rate: 20, BP: 146/91, Pulse Oximetry: 99, Weight: 120.000 Physical Exam VITALS: Reviewed and as above. GENERAL: Alert, nontoxic appearing, no apparent distress. HEENT: No tonsillar swelling, pharynx mildly erythematous, no exudates or patches RESPIRATORY: No increased work of breathing, no respiratory distress, speaking in full clear sentences, clear lung sounds in all vergara CV: Regular rate and rhythm no murmur Progress Results/Orders Results/Orders Orders - IVANA AVENDANO FIELD RADIO TECHNICIAN Chest,Two Views (12/11/24 17:03) Covid19 Binax Poc Result Entry (12/11/24 16:36) Completed Orders - IVANA AVENDANO FIELD RADIO TECHNICIAN Chest,Two Views (12/11/24 17:03) Acetaminophen (12/11/24 16:36) Acetaminophen 325mg Tablet (Tylenol Tabl (12/11/24 18:52) Vital Signs 12/11/24 12/11/24 16:32 19:40 Temp 101.0 100.3 Pulse 87 89 Resp 20 20 B/P (MAP) 146/91 Pulse Ox 99 Laboratory Tests Test 12/11/24 16:46 12/11/24 18:58 Acetaminophen Level < 2.0 L SARS-CoV-2 Antigen (Rapid) Positive *A Medical Decision Making Findings This 29-year-old female presented with two days of body aches, fever, cough, and sore throat, physical exam was benign with clear lung sounds and no significant tonsillar swelling or patchy exudates. Though patient reported negative COVID test at home a repeat test was obtained and was positive. Symptoms are consistent with COVID-19, patient is hemodynamically stable and otherwise well, patient provided home care instructions for supportive care and management of COVID-19. Patient provided isolation instructions, follow up instructions, and return to care precautions which she verbalized understanding of. Differential Dx:Considerations: Include: Influenza, Meningitis, Pneumonia, Pneumonitis, Respiratory failure, Viral Syndrome, Other (Strep pharyngitis) Departure Time of Disposition: 20:14 Disposition: 01 HOME / SELF CARE / HOMELESS Impression: Primary Impression: COVID-19 Condition: Improved Discharge Instructions: Viral Illness Additional Instructions: You have tested positive for COVID-19. Please see the instructions provided by your nurse about isolation and tips to prevent spreading this infection. Typically you should stay away from work five days after testing positive unless your employer has a different policy. Stay well hydrated, use ibuprofen and or Tylenol as needed for pain and fever as directed by [id number] packaging. Warm fluids and honey may help with the cough and sore throat. Please follow up with your primary care provider in the next few days. Please return to the emergency department for any new or worsening concerning symptoms including but not limited to difficulty breathing or a fever over 100.4 that does not lower with ibuprofen or Tylenol. Referrals: NO PRIMARY CARE PROVIDER (PCP) Education Educated: Patient Educated regarding: diagnosis, treatment, prognosis, need for follow up Signature Scribe Signature: No scribe Attestation: The note accurately reflects work and decisions made by me.BAM cMdonald 12/12/24 16:17 IVANA AVENDANO Dec 11, 2024 16:59
--- NOTE | 2024-12-11 17:41 | RADIOLOGY REPORT ---
DI CHEST,TWO VIEWS CLINICAL HISTORY: FEVER, COUGH, CHEST PAIN COMPARISON: DI CHEST,SINGLE VIEW on DOS: 12/29/23 TECHNIQUE: Frontal and lateral view of the chest was obtained FINDINGS: Lines and Tubes: None Lungs: No focal consolidation. Pleura: No effusion. No pneumothorax. Cardiomediastinal contours: Unremarkable Bones: No acute osseous abnormality. IMPRESSION: No acute cardiopulmonary disease.
[2024-12-11 19:40] VITALS: PULSE 89; RESP 20; TEMP 100.3
== END 2024-12-11 20:29 | disposition home or self-care (01) ==
LOC: ER 16:11
DX: U07.1 COVID-19 (principal); J45.909 Unspecified asthma, uncomplicated; I10 Essential (primary) hypertension; Z88.6 Allergy status to analgesic agent; Z88.5 Allergy status to narcotic agent; Z79.899 Other long term (current) drug therapy; Z72.89 Other problems related to lifestyle
CPT/HCPCS: 36415; 71046; 80329; 87811; 99284

== ENCOUNTER 2025-02-20 10:04 | Emergency (ER) | payer MEDICAID ==
[~2025-02-20] VITALS: Ht 165.1 cm; Wt 116.5 kg
[2025-02-20 10:10] VITALS: BP 131/89
[2025-02-20 10:53] LABS: INFLUENZA TYPE A ANTIGEN RAPID NEGATIVE (Negative); INFLUENZA TYPE B ANTIGEN RAPID NEGATIVE (Negative)
--- NOTE | 2025-02-20 11:49 | Physician Documentation ---
History of Present Illness ~ Chief Complaint: Cold, cough & congestion Stated Complaint: FEVER COUGH Time Seen by MD: 11:25 Primary Medical Doctor: kim ann HPI 29-year-old female who recently any developed cold and cough symptoms presents today with a complaint of shortness of breath and states she does vape nicotine. Denies any history of asthma. Outside of normal URI symptoms she primarily is concerned about her shortness of breath and inability to take a full breath Day of Onset: Feb 20, 2025 Medication Reconciliation Allergies: Coded Allergies: NSAIDS (Non-Steroidal Anti-Inflamma (Verified Allergy, Unknown, 07/21/24) HAS TOLERATED TORADOL IN 12/2023 tramadol (Verified Allergy, Unknown, 07/21/24) Scheduled Amox Tr/Potassium Clavulanate 875/125 MG (Augmentin 875/125 MG), 1 TAB PO BID Omeprazole (Omeprazole), 1 CAP PO DAILY, (Reported) Scheduled PRN albuterol inhaler (Pro-Air Inhaler), 2 PUFFS INH Q4HPRN PRN for wheezing Miscellaneous Medications Tirzepatide (Zepbound), (Reported) Past Medical History Past Medical History: Hypertension, Asthma Patient History: FH: CHF (congestive heart failure) MOTHER FH: COPD (chronic obstructive pulmonary disease) MOTHER FH: heart disease MOTHER FH: kidney failure MOTHER Liver failure MOTHER Alcohol Use: Occasionally Drug Use: none Lives with: Family Lives In: Home Occupation: employed Review of Systems All Other Systems at this time: Reviewed and Negative ROS As stated above in the HPI, otherwise all systems are reviewed and negative. Physical Exam Vital Signs: Temperature: 98.4, Source: Oral, Heart Rate: 72, Respiratory Rate: 16, BP: 131/89, Pulse Oximetry: 98, Weight: 116.500 Oxygen Flow Rate: 0 Physical Exam General: Alert, no apparent distress. HEENT: PERRL, EOMI, no injection, moist mucous membranes. Neck: Full range of motion. Respiratory: Bilateral wheezes throughout Chest: No accessory muscle use. Cardiovascular: Regular rate and rhythm, no murmurs. Gastrointestinal: Soft, nontender, nondistended. Bowels sounds present. Extremities: Normal range of motion, no deformity. Neurologic: Oriented x4. Psychiatric: Normal mood and affect. Skin: Normal color, warm and dry. No edema, no ecchymosis. Progress Results/Orders Results/Orders Orders - LMAAR ARANDA CUSTOM FRAME ASSEMBLER Svn Treatment (02/20/25 ) Completed Orders - LAMAR ARANDA CUSTOM FRAME ASSEMBLER Ipratropium/Albuterol Nebule (Ipratrop/A (02/20/25 11:45) Medications Received in ER Medications (Trade) Dose Ordered Sig/Tariq Route PRN Reason Start Time Stop Time Status Last Admin Dose Admin (ipratrop/ albuterol 0.5-3(2.5) MG/3ml nebule) 3 ml ONCE ONCE NEB 02/20/25 11:45 02/20/25 11:46 DC 02/20/25 12:10 3 ML Vital Signs 02/20/25 02/20/25 02/20/25 02/20/25 10:10 12:12 12:16 12:37 Temp 98.4 98.1 Pulse 72 77 72 Resp 16 18 18 B/P (MAP) 131/89 Pulse Ox 98 100 100 O2 Delivery Room Air* Room Air* O2 Flow Rate 0 0 0 FiO2 21 21 Laboratory Tests Test 02/20/25 10:14 02/20/25 10:33 SARS-CoV-2 Antigen (Rapid) Negative Influenza Type A Antigen Negative Influenza Type B Antigen Negative Medical Decision Making Additional information obtaine: N/A Findings Patient was negative for COVID and flu. I suspect an upper respiratory virus is what is causing her shortness a breath and wheezing. Addition in addition to being a vapor of nicotine she presented with [id number] wheezes which prompted me to order an SVN treatment. Send her home with a instructions to rest along with a an albuterol inhaler as she recovers Differential Dx:Considerations: Include: Allergic rhinitis, Influenza, Otitis media, Peritonsillar abscess, Pharyngitis-Diphtheria, Pharyngitis-Streptoccal, Pharyngitis-Viral, Pneumonia, Pnuemonitis, Sinusitis, URI, Other Departure Disposition: 01 HOME / SELF CARE / HOMELESS Impression: Primary Impression: Cough Additional Impressions: Acute bronchitis Asthma Discharge Instructions: Upper Respiratory Infection, Adult Referrals: NO PRIMARY CARE PROVIDER (PCP) Prescriptions Prednisone (Prednisone) 10 Mg Tablet 1 TAB PO BID for 5 Days, #10 TAB Prov: LAMAR ARANDA CUSTOM FRAME ASSEMBLER 02/20/25 albuterol inhaler (Pro-Air Inhaler) 8.5 Gm Inhaler 2 PUFFS INH Q4HPRN PRN for wheezing for 30 Days, #18 GM Prov: LAMAR ARANDA CUSTOM FRAME ASSEMBLER 02/20/25 Education Educated: Patient Educated regarding: diagnosis Signature Scribe Signature: g Attestation: Scribed for Lamar Aranda Game Trapper by Lamar Aranda - HUNG . 02/20/25 11:48 LAMAR ARANDA NP Feb 20, 2025 11:49
[2025-02-20] MEDS: ipratropium/albuterol 3ml nebule NEB ONE (12:10)
[2025-02-20] MEDS ORDERED: ALBU8HFA INH (12:10)
[2025-02-20 12:12] VITALS: PULSE 77; RESP 18; O2SAT 100
[2025-02-20 12:16] VITALS: PULSE 72; RESP 18; O2SAT 100
[2025-02-20 12:37] VITALS: TEMP 98.1
[2025-02-20] MEDS ORDERED: PRED10TA23 PO (14:18)
== END 2025-02-20 12:40 | disposition home or self-care (01) ==
LOC: ER 10:04
DX: J20.9 Acute bronchitis, unspecified (principal); J45.909 Unspecified asthma, uncomplicated; F17.290 Nicotine dependence, other tobacco product, uncomplicated; I10 Essential (primary) hypertension; Z88.6 Allergy status to analgesic agent; Z88.5 Allergy status to narcotic agent; Z79.899 Other long term (current) drug therapy; Z72.89 Other problems related to lifestyle; Z20.822 Contact with and (suspected) exposure to COVID-19
CPT/HCPCS: 36415; 87804; 87811; 94640; 94760; 99283

== ENCOUNTER 2025-03-21 22:20 | Emergency (ER) | payer MEDICAID ==
[~2025-03-21] VITALS: Ht 165.1 cm; Wt 116.8 kg
[~2025-03-21 22:20] MED LIST changes: +ALBU8HFA INH
--- NOTE | 2025-03-21 23:13 | Physician Documentation ---
History of Present Illness ~ Chief Complaint: Shortness of Breath Stated Complaint: CHEST PAIN Time Seen by MD: 23:12 Primary Medical Doctor: kim ann Source: patient Mode of Arrival: POV HPI 29 yo F presenting with shortness of breath She woke up from sleep with shortness of breath and a dry cough. She vomited once, nonbloody, due to coughing spell. She endorses significant substernal chest pain that she describes as pressure radiating to the left side and neck and an inability to lie flat. She states she feels dizzy and lightheaded. She endorses a slight fever at 99.9. She denies diaphoresis or leg edema. She also states her back, legs, and lower stomach hurt. No changes in bladder or bowel function. She does have a history of asthma. Medication Reconciliation Allergies: Coded Allergies: NSAIDS (Non-Steroidal Anti-Inflamma (Verified Allergy, Unknown, 03/21/25) HAS TOLERATED TORADOL IN 12/2023 tramadol (Verified Allergy, Unknown, 03/21/25) Scheduled Amox Tr/Potassium Clavulanate 875/125 MG (Augmentin 875/125 MG), 1 TAB PO BID Cyclobenzaprine* (Cyclobenzaprine*), 1 TAB PO DAILY Omeprazole (Omeprazole), 1 CAP PO DAILY, (Reported) Prednisone* (Prednisone*), 2 TAB PO DAILY Scheduled PRN ONDANSETRON ODT 4mg tablet (Ondansetron Odt), 1 TAB PO Q8H PRN for nausea/vomiting albuterol inhaler (Pro-Air Inhaler), 2 PUFFS INH Q4HPRN PRN for wheezing Miscellaneous Medications Tirzepatide (Zepbound), (Reported) Past Medical History Past Medical History: Hypertension, Asthma Past Surgical History: abdominal surgery, appendectomy, cholecystectomy, other Patient History: FH: CHF (congestive heart failure) MOTHER FH: COPD (chronic obstructive pulmonary disease) MOTHER FH: heart disease MOTHER FH: kidney failure MOTHER Liver failure MOTHER Smoking Status: Light Tobacco User Alcohol Use: Occasionally Drug Use: none Lives with: Family Lives In: Home Occupation: employed Review of Systems ROS See HPI for pertinent review of systems, otherwise negative Physical Exam Vital Signs: Temperature: 97.6, Source: Oral, Heart Rate: 107, Respiratory Rate: 22, BP: 122/77, Pulse Oximetry: 93, Weight: 116.820 Oxygen Flow Rate: 0 Physical Exam General: Appears uncomfortable. Sitting up. Groaning in pain. HEENT: Atraumatic, oropharynx is moist Heart: Regular rate and rhythm, normal-appearing peripheral perfusion. Di minished heart sounds. Lungs: Clear breath sounds bilateral, shallow breaths, normal oxygen saturation on room air Abdomen: Soft, nondistended, nontender all quadrants Extremities: Warm and well-perfused. No leg swelling. Neuro: Alert and oriented, no focal deficits Psychiatric: Uncomfortable but is cooperative with exam Progress Results/Orders Results/Orders Orders - LAYA TURNER MD Chest,Two Views (03/21/25 23:51) Covid19 Binax Poc Result Entry (03/22/25 00:54) Influenza Type A&B Rapid Test (03/22/25 00:54) Completed Orders - LAYA TURNER MD Electrocardiogram (03/21/25 ) Chest,Two Views (03/21/25 23:51) Cbc/Diff (03/22/25 00:54) CMP (03/22/25 00:54) Hcg Serum Ql (03/22/25 00:54) PBNP (03/22/25 00:54) Hs Troponin I W Calculations (03/22/25 00:54) Normal Saline 1000ml (0.9% Sodium Chlori (03/22/25 00:55) Ondansetron Inj. (Zofran 4mg/2ml Vial) (03/22/25 00:55) Acetaminophen 1,000mg/100ml Iv (Ofirmev (03/22/25 02:00) Albuterol 2.5mg/3ml Nebule (Proventil 2. (03/22/25 01:00) * Rt Notification Q1H (03/22/25 00:56) Ketorolac Trometh 15mg/Ml Vial (Toradol (03/22/25 01:20) Ua W/Microscopic, Cult If Ind (03/22/25 01:17) Prednisone Tablet (Prednisone Tablet) (03/22/25 03:05) Cyclobenzaprine Tablet (Flexeril Tablet) (03/22/25 03:10) Medications Received in ER Medications (Trade) Dose Ordered Sig/Tariq Route PRN Reason Start Time Stop Time Status Last Admin Dose Admin Sodium Chloride 1,000 ml @ 1,000 mls/hr ONCE ONCE IV 03/22/25 00:55 03/22/25 01:54 DC 03/22/25 01:22 1,000 MLS/HR (Zofran 4mg/2ml vial) 4 mg ONCE ONCE IV 03/22/25 00:55 03/22/25 00:56 DC 03/22/25 01:22 4 MG Acetaminophen 100 ml @ 400 mls/hr Q6H ONCE IV 03/22/25 02:00 03/22/25 02:14 DC 03/22/25 02:15 400 MLS/HR (Proventil 2.5 MG/3ML nebule) 2.5 mg ONCE ONCE NEB 03/22/25 01:00 03/22/25 01:01 DC 03/22/25 01:17 2.5 MG (Toradol injection) 15 mg ONCE ONCE IV 03/22/25 01:20 03/22/25 01:21 DC 03/22/25 01:28 15 MG (predniSONE tablet) 40 mg ONCE ONCE PO 03/22/25 03:05 03/22/25 03:06 DC 03/22/25 03:20 40 MG (Flexeril tablet) 10 mg ONCE ONCE PO 03/22/25 03:10 03/22/25 03:11 DC 03/22/25 03:19 10 MG Vital Signs 03/21/25 03/21/25 03/21/25 03/22/25 22:25 22:40 22:40 00:00 Temp 97.6 Pulse 107 Resp 24 20 22 B/P (MAP) 126/84 122/77 (92) Pulse Ox 94 93 93 O2 Flow Rate 0 0 03/22/25 03/22/25 03/22/25 03/22/25 00:01 00:20 01:00 01:20 Pulse 82 80 Resp 18 16 B/P (MAP) 128/62 (84) 124/68 (86) Pulse Ox 97 97 98 O2 Delivery Nasal Cannula* O2 Flow Rate 2.0 2.0 0 2 FiO2 28 03/22/25 03/22/25 03/22/25 03/22/25 01:22 01:28 02:00 03:32 Temp 98.1 Pulse 84 74 74 Resp 19 18 18 18 B/P (MAP) 122/70 (87) 128/70 Pulse Ox 100 97 99 O2 Delivery Nasal Cannula* O2 Flow Rate 2 FiO2 28 Laboratory Tests Test 03/22/25 01:17 White Blood Count 11.9 H Red Blood Count 3.96 L Hemoglobin 12.6 Hematocrit 38.1 Mean Corpuscular Volume 96.2 Mean Corpuscular Hemoglobin 31.9 H Mean Corpuscular Hemoglobin Concent 33.1 Red Cell Distribution Width 13.3 Platelet Count 274 Mean Platelet Volume 9.0 Neutrophils (%) (Auto) 83.9 H Lymphocytes (%) (Auto) 13.3 L Monocytes (%) (Auto) 2.4 Eosinophils (%) (Auto) 0.2 Basophils (%) (Auto) 0.2 Neutrophils # (Auto) 10.0 H Lymphocytes # (Auto) 1.6 Monocytes # (Auto) 0.3 Eosinophils # (Auto) 0.0 Basophils # (Auto) 0.0 CBC Comment Urine Specimen Description Non-specified Urine Color Yellow Urine Clarity Clear Urine pH 5.5 Urine Specific Abbot >=1.030 Urine Protein Negative Urine Glucose (UA) Negative Urine Ketones Negative Urine Occult Blood Trace-intact Urine Nitrite Negative Urine Bilirubin Negative Urine Urobilinogen 0.2 Urine Leukocyte Esterase Negative Urine RBC 0-2 Urine WBC 0-4 Urine Squamous Epithelial Cells Many Urine Bacteria 3+ Urine Mucus Many Urine Culture Indicated Not ind Volume Urine Centrifuged 10 ml Urine Comment Sodium Level 140 Potassium Level 3.5 Chloride Level 106 Carbon Dioxide Level 26.5 Anion Gap 8 Blood Urea Nitrogen 12 Creatinine 0.49 Estimated GFR/1.73 m2 > 90 BUN/Creatinine Ratio 24.5 H Glucose Level 79 Calcium Level 8.3 L Total Bilirubin 0.2 Aspartate Amino Transf (AST/SGOT) 16 Alanine Aminotransferase (ALT/SGPT) 11 L Alkaline Phosphatase 53 Troponin I High Sensitivity 4 Pro-B-Type Natriuretic Peptide < 30 Total Protein 6.9 Albumin 3.3 L Globulin 3.6 Albumin/Globulin Ratio 0.9 L Human Chorionic Gonadotropin, Qual Negative Chemistry Comments EKG/XRAY/CT/US/VASC/MRI Chest X-Ray : Additional Comments I personally interpreted the x-ray, and it shows: No focal consolidation, no mediastinal widening, no pneumothorax Medical Decision Making Additional information obtaine: family Findings Further history obtained from the family Heart Score: 0 Differential Dx:Considerations: Include: anxiety, asthma, bronchitis, dysrhythmia, panic attack, respiratory failure, upper resp. infection Additional Infomation The patient presents with flu-like symptoms. Her workup was unremarkable, no evidence of pneumonia, dangerous dehydration, dangerous heart problem, or other process. She was given symptomatic treatment with good improvement. Overall this seems most consistent with a viral syndrome or flu-like illness. She will be discharged with symptomatic treatment and home care instructions. Departure Disposition: HOME / SELF CARE / HOMELESS Impression: Primary Impression: Viral syndrome Additional Impression: Nausea vomiting and diarrhea Referrals: NO PRIMARY CARE PROVIDER (PCP) Prescriptions ONDANSETRON ODT 4mg tablet (ONDANSETRON ODT) 4 Mg Tab.rapdis 1 TAB PO Q8H PRN for nausea/vomiting for 4 Days, #16 TAB 1 Refill Prov: LAYA TURNER MD 03/22/25 Cyclobenzaprine* (Cyclobenzaprine*) 10 Mg Tablet 1 TAB PO DAILY for 5 Days, #5 TAB Prov: LAYA TURNER MD 03/22/25 Prednisone* (Prednisone*) 20 Mg Tablet 2 TAB PO DAILY for 4 Days, #8 TAB Prov: LAYA TURNER MD 03/22/25 Education Educated: Patient, Family Educated regarding: diagnosis, treatment Signature Scribe Signature: kurt Attestation: LAYA Montgomery MD Mar 21, 2025 23:12
--- NOTE | 2025-03-22 01:06 | RADIOLOGY REPORT ---
CHEST RADIOGRAPH INDICATION: chest pain, sob TECHNIQUE: Frontal and lateral view of the chest was obtained COMPARISON: DI CHEST,TWO VIEWS on DOS: 12/11/24, DI CHEST,SINGLE VIEW on DOS: 12/29/23 FINDINGS: Lines and Tubes: None Lungs: Clear Pleura: No effusion. No pneumothorax. Cardiomediastinal contours: Unremarkable Bones: Unremarkable IMPRESSION: 1. No evidence of acute disease.
[2025-03-22] MEDS: albuterol 2.5 MG/3 ML nebule NEB ONE (01:17)
[2025-03-22 01:22] VITALS: PULSE 84; RESP 19; O2SAT 100
[2025-03-22] MEDS: ondansetron/PF 4mg/2ml inj IV ONE (01:22)
[2025-03-22] MEDS: normal saline 1000ml 1,000 ML IV ONE (01:22)
[2025-03-22 01:26] LABS: LEUKOCYTE ESTERASE ,URINE NEGATIVE (Neg); MEAN PLATELET VOLUME 9.0 FL (7.4-10.4); NITRITES, URINE NEGATIVE (Neg); OCCULT BLOOD,URINE TRACE-INTACT (Neg); RED CELL DISTRIBUTION WIDTH 13.3 % (11.5-14.5)
[2025-03-22] MEDS: ketorolac trometh 15mg/ml vial 15 MG/ML ML IV ONE (01:28)
[2025-03-22 01:29] LABS: UA COLLECTION TYPE NON-SPECIFIED
[2025-03-22 01:33] LABS: MUCUS STRANDS MANY /LPF (Neg); SQUAMOUS EPITHELIAL CELL,UR MANY /LPF (FEW)
[2025-03-22 01:39] LABS: HCG SERUM QL NEGATIVE
[2025-03-22 01:47] LABS: CREATININE 0.49 MG/DL (0.40-0.90); PRO BRAIN NATRIURETIC PEPTIDE < 30 PG/ML (0-125); TOTAL CARBON DIOXIDE 26.5 MMOL/L (24-32); eCRCL 151 ML/MIN; eGFR > 90 ML/MIN
[2025-03-22] MEDS: acetaminophen 1,000mg/100ml IV 100 ML IV ONE (02:15)
[2025-03-22] MEDS ORDERED: CYCL-1 PO (03:09)
[2025-03-22] MEDS ORDERED: PRED20TA PO (03:09)
[2025-03-22] MEDS ORDERED: ONDA-243 PO (03:11)
[2025-03-22 03:32] VITALS: BP 128/70; PULSE 74; RESP 18; TEMP 98.1; O2SAT 99
--- NOTE | 2025-03-22 05:29 | ELECTROCARDIOGRAPH REPORT ---
[facility] Test Date: 2025-03-21 Test Time: 22:26:11 Pat Name: [facility] Department: EMERGENCY ROOM Patient ID: [facility]-[id number] Room: Gender: F [employer]: SHEKHAR : 1995 Requested By: LAYA TURNER Order Number: [id number] Reading MD: Dr. NORIS Hickey Measurements Intervals [place] Rate: 94 P: 68 GA: 153 QRS: 56 QRSD: 88 T: 59 QT: 350 QTc: 438 Interpretive Statements Sinus rhythm Borderline T abnormalities, anterior leads Electronically Signed On 03-23-2025 19:39:[address] NORIS Hickey Please click the below link to view image of tracing.
== END 2025-03-22 03:35 | disposition home or self-care (01) ==
LOC: ER 22:21
DX: B34.9 Viral infection, unspecified (principal); R19.7 Diarrhea, unspecified; I10 Essential (primary) hypertension; J45.909 Unspecified asthma, uncomplicated; Z88.5 Allergy status to narcotic agent; Z88.6 Allergy status to analgesic agent; Z88.8 Allergy status to other drugs, medicaments and biological substances; Z90.49 Acquired absence of other specified parts of digestive tract
CPT/HCPCS: 36415; 71046; 80053; 81001; 83880; 84484; 84703; 85025; 93005; 94640; 96361; 96374; 96375; 99285; J0131; J1885; J2405; J7030; J7512; 94760